=== PATIENT | female | born 1940 ===

== ENCOUNTER 2022-10-23 00:50 | Observation (INO) | payer MEDICARE ==
[2022-10-23] MEDS ORDERED: Bisacodyl 5 MG TAB PO PRN (01:01)
[2022-10-23] MEDS ORDERED: Acetaminophen 325 MG TAB PO PRN (01:01)
[2022-10-23] MEDS ORDERED: Ondansetron ODT 4 MG TAB PO PRN (01:01)
[2022-10-23] MEDS ORDERED: Senokot S 8.6-50 MG TAB PO PRN (01:01)
[2022-10-23] MEDS ORDERED: Ondansetron PF 4 MG/2 ML Vial IVP PRN (01:01)
[2022-10-23 01:02] VITALS: BMI 26.4
[2022-10-23] MEDS ORDERED: Nitroglycerin 0.4 MG TAB (25 Tab Bottle) SL PRN (01:02)
[2022-10-23 01:43] LABS: #Basophils 0.1 thou/uL (0.0-0.2); #Eosinphils 0.1 thou/uL (0.0-0.7); #Lymphocytes 2.3 thou/uL (1.20-3.40); #Monocytes 0.7 thou/uL (0.11-0.59); #Neutrophils 3.9 thou/uL (1.40-6.50); %Basophils 0.9 % (0.0-1.0); %Eosinophils 2.1 % (0.0-10.0); %Lymphocytes 32.2 % (21.0-51.0); %Monocytes 9.7 % (0.0-10.0); %Neutrophils 55.2 % (42.0-75.0); Hemoglobin 9.9 g/dL (12.0-16.0); Mean Corpuscular HGB CONC 33.4 g/dL (32.0-36.0); Mean Corpuscular Hemoglobin 30.8 pg (27.0-31.0); Mean Corpuscular Volume 92.1 fl (78.0-98.0); Mean Platelet Volume 7.3 fL (7.4-10.4); Platelet Count 204 10x3/uL (130-400); RBC Distribution Width 12.3 % (11.5-14.5); Red Blood Cell (RBC) Count 3.22 mill/uL (4.20-5.40)
[2022-10-23 02:07] LABS: Troponin I Less than 0.010 ng/mL (< 0.028)
[2022-10-23 02:16] LABS: Chloride 109 mmol/L (98-107); Potassium 3.9 mmol/L (3.5-5.1); Sodium 139 mmol/L (136-145)
[2022-10-23 02:17] LABS: Calcium 8.7 mg/dL (7.8-10.44)
[2022-10-23 02:18] LABS: Glucose 122 mg/dL (83-110); Triglycerides 55 mg/dL (Less than 150)
[2022-10-23 02:19] LABS: Anion Gap 11 mmol/L (10-20); Carbon Dioxide 23 mmol/L (23-31)
[2022-10-23 02:20] LABS: Hemoglobin A1c 6.1 % (4.0-6.0)
[2022-10-23 02:21] LABS: Calc. Creatinine Clearance 51 mL/min (70-130); Estimated GFR 67
[2022-10-23 02:22] LABS: BUN (Urea Nitrogen) 18 mg/dL (9.8-20.1)
[2022-10-23 02:23] LABS: Cardiac Risk 2.6 (Less than 4.5); Cholesterol 112 mg/dl (< 200 Desired); HDL Cholesterol 43 mg/dL (>60 Neg Risk); LDL Cholesterol, Calculated 58 mg/dL
[2022-10-23 05:33] LABS: Troponin I Less than 0.010 ng/mL (< 0.028)
[2022-10-23] MEDS: Nitroglycerin 2% Ointment 1 INCH/1 GM Packet TOP SCH ×3 (05:39→20:32)
[2022-10-23] MEDS: Aspirin Chewable 81 MG TAB PO SCH (07:36)
[2022-10-23] MEDS ORDERED: Regadenoson 0.4 MG/5 ML SYRINGE ONE (09:09)
[2022-10-23] MEDS: Timolol 0.5% Ophth Soln 5 ml Bottle EA EYE SCH (20:29)
[2022-10-23] MEDS ORDERED: Latanoprost 0.005% Ophth Soln 2.5 ml Bottle EA EYE SCH (21:00)
[2022-10-23] MEDS ORDERED: Rosuvastatin 20 MG TAB PO SCH (21:00)
[2022-10-24 03:08] VITALS: TEMP 98.2
[2022-10-24] MEDS: Nitroglycerin 2% Ointment 1 INCH/1 GM Packet TOP SCH (06:00)
[2022-10-24] MEDS: Timolol 0.5% Ophth Soln 5 ml Bottle EA EYE SCH (08:06)
[2022-10-24] MEDS: Aspirin Chewable 81 MG TAB PO SCH (08:06)
[2022-10-24 09:23] VITALS: BP 161/71
== END 2022-10-24 10:00 | disposition home or self-care (01) ==
LOC: 2SW 00:50
PROVIDERS: ADMIT Student in an Organized Health Care Education/Training Program; ATTEND Nurse Practitioner Family
DX: R07.9 Chest pain, unspecified (principal); M25.512 Pain in left shoulder; I25.10 Atherosclerotic heart disease of native coronary artery without angina pectoris; I25.2 Old myocardial infarction; E78.5 Hyperlipidemia, unspecified; Z79.82 Long term (current) use of aspirin; Z79.899 Other long term (current) drug therapy; Z91.011 Allergy to milk products; Z95.5 Presence of coronary angioplasty implant and graft
CPT/HCPCS: 78452; 80048; 80061; 83036; 84443; 84484 ×2; 85025; 93017; 94760; A9500; 36415; G0378; J2785